=== PATIENT | male | born 1990 | race African-American/Black ===

== ENCOUNTER 2017-07-30 13:53 | Emergency (ER) | payer SELFPAY ==
[2017-07-30 14:01] VITALS: TEMP 97.6
[2017-07-30] MEDS ORDERED: IPRATROPIUM-ALBUTEROL 3 ML NEB INHALATION STA (14:32)
--- NOTE | 2017-07-30 14:39 | ED ---
URI HPI - General Chief Complaint: Upper Respiratory Infection Stated Complaint: Chest pain Time Seen by Provider: 07/30/17 14:15 Source: patient, RN notes reviewed Mode of arrival: ambulatory Limitations: no limitations - History of Present Illness Initial Comments: Is a 26-year-old male with a benign past medical history other bronchitis who states he had the onset over last couple days of cough with yellow phlegm last and disoriented bloody phlegm that was bright red. He's had some chills and sweats last night and sweats night before. He has chest tightness which increases with deep breathing and movements. No nausea no vomiting no head or neck pain no blurry vision no overt ear or throat pain no rhinorrhea. The patient is a smoker he smokes one pack of cigars per day. No history of documented heart or lung disease except for the bronchitis that he mentioned. MD Complaint: cough, other - Related Data Previous Rx's Medication Instructions Recorded Albuterol Inhaler [Ventolin Hfa 2 puff INHALATION Q6HR PRN #1 07/30/17 Inhaler] inhaler Amoxicillin 500 mg PO Q8H #30 capsule 07/30/17 predniSONE 20 mg PO BID #10 tab 07/30/17 Allergies Allergy/AdvReac Type Severity Reaction Status Date / Time codeine Allergy Rash/Hives Verified 07/30/17 14:26 Review of Systems ROS Statement: Those systems with pertinent positive or pertinent negative responses have been documented in the HPI. ROS Other: All systems not noted in ROS Statement are negative. Past Medical History Past Medical History: No Reported History History of Any Multi-Drug Resistant Organisms: None Reported Past Surgical History: No Surgical Hx Reported Past Psychological History: No Psychological Hx Reported Smoking Status: Current every day smoker Past Alcohol Use History: None Reported Past Drug Use History: None Reported General Exam - General Exam Comments Initial Comments: This is a well-developed well-nourished awake alert oriented 3 male Limitations: no limitations General appearance: alert, in no apparent distress Head exam: Present: atraumatic, normocephalic, normal inspection Eye exam: Present: normal appearance, PERRL, EOMI. Absent: scleral icterus, conjunctival injection, periorbital swelling ENT exam: Present: normal exam, mucous membranes moist Neck exam: Present: normal inspection. Absent: tenderness, meningismus, lymphadenopathy Respiratory exam: Present: chest wall tenderness (Decreased breath sounds on the right compared to the left also reproducible tenderness palpation over left costochondral costal sternal margins.), decreased breath sounds Cardiovascular Exam: Present: regular rate, normal rhythm, normal heart sounds. Absent: systolic murmur, diastolic murmur, rubs, gallop, clicks GI/Abdominal exam: Present: soft, normal bowel sounds. Absent: distended, tenderness, guarding, rebound, rigid Extremities exam: Present: normal inspection, full ROM, normal capillary refill. Absent: tenderness, pedal edema, joint swelling, calf tenderness Back exam: Present: normal inspection Neurological exam: Present: alert, oriented X3, CN II-XII intact Psychiatric exam: Present: normal affect, normal mood Skin exam: Present: warm, dry, intact, normal color. Absent: rash Course Vital Signs 07/30/17 07/30/17 07/30/17 13:59 14:37 14:47 Temperature 97.6 F Pulse Rate 70 72 72 Respiratory 18 Rate Blood Pressure 134/83 O2 Sat by Pulse 98 Oximetry - Reevaluation(s) Reevaluation #1: 07/30/17 14:39 We did discuss the risks and benefits of smoking cessation. Patient does smoke almost a pack of cigarettes per day. The entire conversation lasted 3.1 minutes Medical Decision Making - Medical Decision Making I did discuss the findings with the patient. His presentation is consistent with acute bronchospasm and bronchitis. He'll be placed on appropriate medication he was advised to stop smoking. Intrauterine a prescription for an inhaler short course of steroids and antibiotic. - Radiology Data Radiology results: report reviewed (I did review the imaging a reports no definite acute findings.), image reviewed Disposition Clinical Impression: Acute asthmatic bronchitis, Right lower lobe pneumonitis, Smoking Disposition: HOME SELF-CARE Condition: Good Instructions: Bronchospasm (ED), Acute Bronchitis (ED), Pneumonitis (ED), How to Stop Smoking (ED) Prescriptions: Albuterol Inhaler [Ventolin Hfa Inhaler] 2 puff INHALATION Q6HR PRN #1 inhaler PRN Reason: Dyspnea Amoxicillin 500 mg PO Q8H #30 capsule predniSONE 20 mg PO BID #10 tab Referrals: None,Stated [Primary Care Provider] - 1-2 days
--- NOTE | 2017-07-30 16:12 | XR ---
EXAMINATION TYPE: XR chest 2V DATE OF EXAM: 07/30/2017 COMPARISON: NONE INDICATION: Cough TECHNIQUE: Frontal and lateral views of the chest are obtained. FINDINGS: The heart size is normal. The pulmonary vasculature is normal. The lungs are clear. IMPRESSION: 1. No acute pulmonary process.
[2017-07-30 16:27] VITALS: BP 126/71; PULSE 60; RESP 16
== END 2017-07-30 16:52 | disposition home or self-care (01) ==
LOC: EC 13:53
DX: J45.909 Unspecified asthma, uncomplicated (principal); J18.9 Pneumonia, unspecified organism; F17.210 Nicotine dependence, cigarettes, uncomplicated; Z88.5 Allergy status to narcotic agent
CPT/HCPCS: 71020; 94640; 99283